=== PATIENT | female | born 1955 | race Caucasian/White ===

== ENCOUNTER 2024-09-17 09:03 | Inpatient (IN) | payer MEDICARE, OTHER ==
[~2024-09-17] VITALS: Ht 160 cm; Wt 78.5 kg
[2024-09-17] MEDS ORDERED: ACETAMINOPHEN ES 500 MG TABLET ONE (10:48)
[2024-09-17] MEDS: ACETAMINOPHEN ES 500 MG TABLET PO PRN (10:52)
[2024-09-17] MEDS ORDERED: ACETAMINOPHEN 325 MG TABLET PO ONE (11:30)
[2024-09-17] MEDS ORDERED: OXYMETAZOLINE HCL NASAL SPRAY 30 ML BOTTLE NS ONE (12:30)
[2024-09-17] MEDS ORDERED: LIDOCAINE 2%-EPI 1:100,000 30 ML VIAL ONE (12:50)
[2024-09-17] MEDS ORDERED: VANCOMYCIN 1 GM VIAL ONE (12:50)
[2024-09-17] MEDS ORDERED: dexaMETHasone SOD PHOSPHATE 1 ML ONE (12:50)
[2024-09-17] MEDS ORDERED: FENTANYL PF 100MCG/2ML AMPUL ONE (12:52)
[2024-09-17] MEDS ORDERED: MIDAZOLAM HCL 2 MG/2ML VIAL ONE (12:52)
[2024-09-17] MEDS ORDERED: FAMOTIDINE/PF INJ 20 MG/2 ML VIAL IV ONE (13:11)
[2024-09-17] MEDS ORDERED: LABETALOL HCL IV 100MG VIAL IV PRN (15:00)
[2024-09-17] MEDS ORDERED: ONDANSETRON HCL/PF 4 MG/2 ML VIAL IVP PRN (15:00)
[2024-09-17] MEDS ORDERED: HYDROMORPHONE 1 MG/1 ML DISP.SYRIN IV PRN ×2 (15:00→16:00)
[2024-09-17] MEDS ORDERED: EPHEDRINE SULFATE IV 50MG VIAL IV PRN (15:00)
[2024-09-17] MEDS ORDERED: hydrALAZINE HCL IV 20 MG VIAL IV PRN (15:00)
[2024-09-17] MEDS ORDERED: MEPERIDINE HCL/PF 50 MG/ML DISP.SYRIN IV PRN (15:00)
[2024-09-17] MEDS ORDERED: FENTANYL PF 100MCG/2ML AMPUL IV PRN (15:00)
[2024-09-17 15:45] VITALS: BP 134/65; TEMP 98.3; O2SAT 96
[2024-09-17] MEDS ORDERED: ONDANSETRON HCL/PF 4 MG/2 ML VIAL IV PRN (16:00)
[2024-09-17] MEDS: IV NS 0.9% 1,000 ML IV PRN (16:04)
[2024-09-17] MEDS ORDERED: TRAM50TA2 PO (16:38)
[2024-09-17] MEDS ORDERED: GABA300C PO (16:38)
[2024-09-17] MEDS ORDERED: LOSA50TA39 PO (16:38)
[2024-09-17 20:00] VITALS: BP 149/81; TEMP 98.1; O2SAT 96
[2024-09-17] MEDS: ACETAMINOPHEN 325 MG TABLET PO PRN (20:51)
[2024-09-17 22:03] VITALS: BP 149/81; TEMP 98.1; O2SAT 96
[2024-09-18] MEDS: VANCOMYCIN 1 GM in IV D5W 250ml IV SCH (01:16)
[2024-09-18 08:00] VITALS: BP 120/62; TEMP 98.2; O2SAT 95
== END 2024-09-18 15:46 | disposition home or self-care (01) | DRG 497 ==
LOC: DS 09:03 → MED 15:43
PROVIDERS: ADMIT Internal Medicine; ATTEND Internal Medicine
PROC: 0N5V0ZZ Destruction of Left Mandible, Open Approach (ICD-10-PCS; 2024-09-17)
PROC: 0NST04Z Reposition Right Mandible with Internal Fixation Device, Open Approach (ICD-10-PCS; 2024-09-17)
PROC: 0NSV04Z Reposition Left Mandible with Internal Fixation Device, Open Approach (ICD-10-PCS; 2024-09-17)
PROC: 0NUV07Z Supplement Left Mandible with Autologous Tissue Substitute, Open Approach (ICD-10-PCS; 2024-09-17)
PROC: 0NUT07Z Supplement Right Mandible with Autologous Tissue Substitute, Open Approach (ICD-10-PCS; 2024-09-17)
PROC: 0N5T0ZZ Destruction of Right Mandible, Open Approach (ICD-10-PCS; principal; 2024-09-17 13:00)
DX: S02.69XK Fracture of mandible of other specified site, subsequent encounter for fracture with nonunion (principal); M27.2 Inflammatory conditions of jaws; I10 Essential (primary) hypertension; D16.4 Benign neoplasm of bones of skull and face; X58.XXXD Exposure to other specified factors, subsequent encounter
CPT/HCPCS: A4338; G0378; J1100; J1308; J2250; J2405; J2704; J3010; J3370; J3490; J7030; J7060